=== PATIENT | female | born 1950 | race Caucasian/White ===

== ENCOUNTER 2017-07-14 08:00 | Outpatient (CLI) | payer MEDICARE ==
--- NOTE | 2017-07-14 09:26 | MRI ---
MRI CERVICAL SPINE NONCONTRAST: Date: 07-14-17 History: 67-year-old female with cervical radiculopathy, M54.12. Cervicalgia with left sided cervical radiculopathy for several months. Comparison: None. FINDINGS: No Chiari 1 malformation. Cervical spinal cord is normal in size. There is no syringohydromyelia. Ali gnment is normal. Broad based disc/osteophytic bar complexes encroach upon the anterior aspect of the spinal canal, exacerbating the spinal canal which is somewhat developmentally small in caliber due t o congenitally short pedicles. Bilateral uncinate process osteophytes encroach upon the bilateral alex ral foramina, causing neural foraminal stenosis at multiple levels. Mild to moderate disc space narro wing at C5-6 and C6-7. Mild disc space narrowing at C3-4. Degenerative facet disease, which is modera te on the right at C2-3, C3-4, and C4-5; mild on the left at C2-3, severe on the left at C3-4, and mo derate to severe on the left at C4-5. Regarding the central spinal canal stenosis and neural foramina l stenosis, the findings by individual levels are as follows: C1-2: No high grade central stenosis. C2-3: Mild central stenosis. Minimal right neural foraminal stenosis. Mild to moderate left neural fo raminal stenosis. C3-4: Moderate central stenosis. Severe bilateral neural foraminal stenosis. C4-5: Mild central stenosis. Moderate to severe bilateral neural foraminal stenosis. C5-6: Severe central spinal canal stenosis. Severe bilateral neural foraminal stenosis, left worse th an right. C6-7: Moderate to severe central spinal canal stenosis. Severe bilateral neural foraminal stenosis, l eft worse than right. C7-T1: Mild central stenosis. No neural foraminal stenosis. IMPRESSION: 1. Cervical spondylosis: multilevel mild and moderate degenerative disc disease, and facet osteoarthr osis in the upper levels, left worse than right. 2. Multilevel high grade central spinal canal stenosis, and multilevel severe bilateral neural forami nal stenosis. POS: [facility]
== END 2017-07-14 08:01 | disposition home or self-care (01) ==
LOC: MRI 08:00 → TBSIIMAG 08:01
PROVIDERS: ATTEND Orthopaedic Surgery
DX: M47.22 Other spondylosis with radiculopathy, cervical region (principal); M50.10 Cervical disc disorder with radiculopathy, unspecified cervical region; M48.02 Spinal stenosis, cervical region
CPT/HCPCS: 72141

== ENCOUNTER 2018-06-27 08:53 | Outpatient (CLI) | payer MEDICARE ==
--- NOTE | 2018-06-28 08:49 | EKG ---
Test Reason : Blood Pressure : / mmHG Vent. Rate : 066 BPM Atrial Rate : 066 BPM P-R Int : 176 ms QRS Dur : 080 ms QT Int : 400 ms P-R-T Axes : 049 048 019 degrees QTc Int : 419 ms Normal sinus rhythm Non specific T wave business change manager 3 Abnormal ECG When compared with ECG of 30-JAN-2009 09:15, No significant change was found Confirmed by DR. Miguel MORALES ([id number]) on 06/28/2018 8:48:59 AM Referred By: [place] Confirmed By:DR. Miguel MORALES
== END 2018-06-27 08:54 | disposition home or self-care (01) ==
LOC: LABBT 08:53
PROVIDERS: ATTEND Neurological Surgery
DX: Z01.810 Encounter for preprocedural cardiovascular examination (principal); M54.12 Radiculopathy, cervical region
CPT/HCPCS: 93005; 93010

== ENCOUNTER 2018-07-01 05:39 | Day surgery (SDC) | payer MEDICARE ==
[2018-06-27 09:21] VITALS: BMI 29.2
--- NOTE | 2018-06-30 13:38 | HP ---
HISTORY OF PRESENT ILLNESS: Ms. De La Cruz is a very pleasant 68-year-old woman, who was referred to [facility] by Dr. Valle for evaluation of left upper extremity C6 and C7 pain, C7 is the predominant sym ptom with a new MRI from [facility] revealing severe bilateral neural foraminal narrowing from C5-7 matchin g her symptoms well. She has treated this with medications, epidural steroid injections, physical th erapy with limited result surgery to treat this if possible. PAST MEDICAL HISTORY: Significant for chronic pain syndrome, diabetes, and hypothyroidism. CURRENT MEDICATIONS: Levothyroxine, metformin, losartan, simvastatin, and 81 mg aspirin. ALLERGIES: CIPRO and IV IODINE CONTRAST. PAST SURGICAL HISTORY: None specified. PHYSICAL EXAMINATION: GENERAL: Patient is alert and oriented x3. NEUROLOGIC: Gait is normal, no ataxia. Bilateral upper extremity strength is 5/5 in all movements. She does have normal reflexes at the bilateral biceps tendon cervical range of motion secondar y to pain. ASSESSMENT: Cervical radiculopathy. PLAN: Dr. Alexander met with the patient, reviewed imaging and advocated for a C5-C7 ACDF. He explained to the patient the risks, benefits, and alternatives to the procedure. The patient expressed unders tanding and would like to move forward with surgery as discussed. I do believe the patient is mental ly competent and capable of making medical decisions for herself. We will move forward with surgery as planned. Jarvis Wood PA-C, dictating for Gabe Alexander M.D.
[2018-07-01] MEDS ORDERED: Famotidine/PF 20 mg/2ml Vial ONE (05:56)
[2018-07-01] MEDS ORDERED: Midazolam HCl 2 mg/2 ml Vial ONE (05:57)
[2018-07-01] MEDS ORDERED: Scopolamine 1.5 mg/72 hour Patch ONE (05:57)
[2018-07-01] MEDS ORDERED: HYDROmorphone 2 MG/ML VIAL ONE (05:58)
[2018-07-01] MEDS ORDERED: Thrombin 5000 UNITS/5 ML VIAL ONE (06:16)
[2018-07-01] MEDS ORDERED: CEFAZOLIN 2 GM/50 ML BAG ONE ×2 (06:46→10:07)
[2018-07-01 06:49] LABS: Hemoglobin 11.5 g/dL (12.0-16.0); Mean Corpuscular Hemoglobin 26.1 pg (27.0-31.0); Mean Corpuscular Volume 81.6 fL (78.0-98.0); Mean Platelet Volume 7.1 fL (7.4-10.4); Platelet Count 240 thou/uL (130-400); RBC Distribution Width 12.9 % (11.5-14.5); Red Blood Cell (RBC) Count 4.39 mill/uL (4.20-5.40)
[2018-07-01 07:12] LABS: ALT (SGPT) 19 U/L (8-55); AST (SGOT) 17 U/L (5-34); Albumin 4.1 g/dL (3.4-4.8); Alkaline Phosphatase 85 U/L (40-150); Anion Gap 12 mmol/L (10-20); BUN (Urea Nitrogen) 20 mg/dL (9.8-20.1); Bilirubin, Total 0.7 mg/dL (0.2-1.2); Calc. Creatinine Clearance 86 mL/min (70-130); Calcium 9.1 mg/dL (7.8-10.44); Carbon Dioxide 22 mmol/L (23-31); Chloride 106 mmol/L (98-107); Estimated GFR-MDRD 76; Globulin 2.2 g/dL (2.4-3.5); Glucose 116 mg/dL (80-115); Potassium 4.2 mmol/L (3.5-5.1); Protein, Total 6.3 g/dL (6.0-8.3); Sodium 136 mmol/L (136-145)
--- NOTE | 2018-07-01 08:31 | OP ---
DATE OF PROCEDURE: 07/01/2018 SURGEON: Gabe Alexander M.D. MOTH PROOFER: Jarvis Wood PA-C. INDICATION: Pain. DIAGNOSIS: Cervical radiculopathy. PROCEDURE: Anterior cervical discectomy and fusion C5-C7. ANESTHESIA: General. TECHNIQUE: The patient was brought into the operating room and placed under general anesthesia. She was placed on the table in supine position. A transverse incision was planned over the lateral aspe ct of the neck on the right. After prepping and draping and after appropriate operative pause, the i ncision was created. The underlying platysma muscles identified and incised. A blunt tissue plane a nterior to the sternocleidomastoid muscle was used to gain access to the prevertebral space. Self-re taining retractors were placed in the wound for optimal exposure. After confirming the appropriate l evels with C-arm fluoroscopy annulotomy was performed in the C6-7 and C5-6 disk spaces. All the disk material as well as anterior and posterior osteophytes were removed. A 6 mm lordotic PEEK cages pac ked with allograft and autograft material were placed within the interbody space. An anterior cervic al plate was then fashioned to the front of the spine and secured with a total of 6 screws. Midline and lateral structures were inspected and found to be free from significant trauma. The wound was ir rigated. Hemostasis was maintained throughout. The wound was then closed in anatomic layers and a p ressure dressing was applied. There were no known procedural complications.
[2018-07-01] MEDS ORDERED: Ketorolac Tromethamine 30 MG/ML VIAL ONE (08:42)
[2018-07-01] MEDS ORDERED: Ondansetron PF 4 MG/2 ML Vial ONE (13:12)
[2018-07-01] MEDS ORDERED: PROPOFOL 200 MG/20 ML VIAL ONE (13:12)
[2018-07-01] MEDS ORDERED: Esmolol 100 MG/10 ML VIAL ONE (13:12)
[2018-07-01] MEDS ORDERED: Lidocaine 1% PF 5 ML VIAL ONE (13:12)
[2018-07-01] MEDS ORDERED: PHENYLEPHRINE-NS 100 MCG/ML 10 ML SYRINGE ONE (13:12)
[2018-07-01] MEDS ORDERED: Dexamethasone 20 MG/5 ML VIAL ONE (13:12)
[2018-07-01] MEDS ORDERED: Glycopyrrolate 0.2 MG/ML 5 ML SYRINGE ONE (13:12)
[2018-07-01] MEDS ORDERED: Succinylcholine Chloride 20 MG/ML 10 ml SYRINGE FS ONE (13:12)
== END 2018-07-01 10:45 | disposition home or self-care (01) ==
LOC: SDC 05:39
PROVIDERS: ATTEND Neurological Surgery
PROC: 0RG20A0 Fusion of 2 or more Cervical Vertebral Joints with Interbody Fusion Device, Anterior Approach, Anterior Column, Open Approach (ICD-10-PCS; principal; 2018-07-01)
PROC: 0RG20K0 Fusion of 2 or more Cervical Vertebral Joints with Nonautologous Tissue Substitute, Anterior Approach, Anterior Column, Open Approach (ICD-10-PCS; 2018-07-01)
PROC: 0RG2070 Fusion of 2 or more Cervical Vertebral Joints with Autologous Tissue Substitute, Anterior Approach, Anterior Column, Open Approach (ICD-10-PCS; 2018-07-01)
DX: M48.02 Spinal stenosis, cervical region (principal); E11.9 Type 2 diabetes mellitus without complications; Z91.041 Radiographic dye allergy status; Z88.1 Allergy status to other antibiotic agents; E03.9 Hypothyroidism, unspecified; Z79.82 Long term (current) use of aspirin; Z79.899 Other long term (current) drug therapy; Z79.84 Long term (current) use of oral hypoglycemic drugs
CPT/HCPCS: 20931; 20936; 22551; 22552; 22845; 22853 ×2; 76001; 80053; 85027; 96374; C1713 ×2; C1776; 36415; J0131; J1100; J1170; J1885; J2001; J2250; J2405; J2704; S0028

== ENCOUNTER 2021-01-24 09:00 | Outpatient (CLI) | payer MEDICARE | END 2021-01-24 09:01 | disposition home or self-care (01) | LOC: TBSIIMAG 09:00 | PROVIDERS: ATTEND Anesthesiology Pain Medicine | DX: M51.16 Intervertebral disc disorders with radiculopathy, lumbar region (principal); M16.0 Bilateral primary osteoarthritis of hip; S79.912A Unspecified injury of left hip, initial encounter; M47.26 Other spondylosis with radiculopathy, lumbar region; M43.17 Spondylolisthesis, lumbosacral region; M48.061 Spinal stenosis, lumbar region without neurogenic claudication | CPT/HCPCS: 72148 ==

== ENCOUNTER 2021-10-08 08:52 | Outpatient (CLI) | payer MEDICARE | END 2021-10-08 08:53 | disposition home or self-care (01) | LOC: BICMAMMO 08:52 | PROVIDERS: ATTEND Family Medicine | DX: Z13.820 Encounter for screening for osteoporosis (principal); M85.89 Other specified disorders of bone density and structure, multiple sites | CPT/HCPCS: 77080 ==